=== PATIENT | male | born 1995 | race Hispanic/Latino ===

== ENCOUNTER 2025-01-21 23:40 | Emergency (ER) | payer SELFPAY ==
[2025-01-21 23:41] VITALS: BP 107/56; PULSE 89; RESP 16; TEMP 36.1; O2SAT 99
[2025-01-21 23:43] VITALS: BMI 26.6
[2025-01-22] MEDS: Ondansetron 4 MG/2 ML Vial IV (00:46)
--- NOTE | 2025-01-22 00:47 | EX.ED.DYSGE1 ---
HPI History of Present Illness Chief Complaint: Nausea/Vomiting Detail of Chief Complaint: I am high Informant: patient Onset/Context/Timing Onset: Today Context: Sudden Onset Timing: Continuous Quality: Sensation of altered mental status due to smoking a bowl of marijuana Location: Presents from home Current Severity: Moderate Maximum Severity: Severe Worsened by: After smoking a bowl of marijuana Relieved by: Nothing Associated Symptoms Associated Symptoms: Nausea and vomiting Narrative Narrative: Patient is a 29-year-old male. He has not smoked marijuana couple of months. He states he smoked a bowl this evening. Became nauseous with vomiting and now having dry heaves. He denies headache. He denies visual, ocular auditory symptoms. He denies respiratory or cardiac symptoms. He denies neurologic symptoms. Prior similar symptoms: No Recent Illness/Hospitalization: No PFSH PFSH Medical History no medical history no medical history Allergy/AdvReac Type Severity Reaction Status Date / Time No Known Allergies Allergy Verified 01/21/25 23:41 Social History Smoking Status: Never smoker ROS ROS ED Constitutional Constitutional ED: Reports sweats; Denies chills, fever(s), subjective or weight loss Eyes Eyes: Denies blurry vision or change in vision ENT ENT ED: Denies ear pain, rhinorrhea or sore throat Cardiovascular Cardiovascular: Denies chest pain, orthopnea, palpitations or racing heartbeat Respiratory/Chest Respiratory/Chest: Denies cough, dyspnea, dyspnea on exertion or orthopnea Gastrointestinal Gastrointestinal: Reports abdominal pain, nausea and vomiting; Denies diarrhea Integumentary Denies rash Neurologic Neurologic: Denies paresthesias or weakness Hematologic/Lymphatic Hematologic/Lymphatic: Reports systems reviewed and no addt'l complaints, except as documented EXAM Physical Exam Const Vital Signs: 01/21/25 23:41 01/22/25 01:41 Temperature 97 F L Temperature Source Temporal Pulse Rate 89 80 Respiratory Rate 16 14 Blood Pressure 107/56 L Blood Pressure Mean 73 Pulse Ox 99 95 Oxygen Delivery Method Room Air Room Air Positive well nourished and well developed Constitutional Narrative: Patient appears pale. He is actively vomiting. General Appearance ED: well developed and pallor; Negative for NAD HEENT Reports dry mucous membranes HEENT Narrative: Head is atraumatic normocephalic. Ears are normal. Nares are patent. Mouth ED: Yes dry mucous membranes Mouth: dry mucous membranes Eyes PERRL and EOMs intact bilaterally General Eye ED: Negative for pale conjunctiva or scleral icterus Neck no lymphadenopathy, supple and no JVD Chest Wall inspection of chest normal and palpation of chest normal Resp normal respiratory effort and clear to auscultation bilaterally Cardio regular rate, regular rhythm, S1 normal heart sound, S2 normal heart sound and no murmurs GI normal to inspection, nondistended, normoactive bowel sounds, non-tender, non-distended and no masses; Negative for hepatosplenomegaly Back/Spine no CVA tenderness Extremity normal to inspection Neuro oriented x3 and CN's II-XII intact bilaterally Sensorium / Orientation: alert Psych mental status grossly normal Skin no rashes or lesions noted, no wounds and skin turgor normal General Skin Exam: pallor; Negative for elasticity normal or jaundice MDM MDM MDM Narrative Medical decision making narrative: Patient was treated with IV Zofran. I was informed at 0255 he wishes to leave. His ride is on their way. Discharge Plan Triage Chief Complaint: Nausea/Vomiting ED Provider: Deshawn Lester Dx/Rx/DC Orders Clinical Impression: Cannabinoid hyperemesis syndrome Instructions: ED Vomiting (Adult) Primary Care Provider: Care Physician,No [facility] - As Needed Care Physician,No Primary [Primary Care Provider] - Print Language: German Disposition Disposition: Home, Self Care
[2025-01-22 01:41] VITALS: PULSE 80; RESP 14; O2SAT 95
== END 2025-01-22 03:03 | disposition home or self-care (01) ==
PROVIDERS: Emergency Provider Emergency Medicine; Visit Provider Emergency Medicine
DX: F12.188 Cannabis abuse with other cannabis-induced disorder (principal)
CPT/HCPCS: 96374; 96376; 99284; A4216; J2405